=== PATIENT | male | born 1955 | race Caucasian/White ===

== ENCOUNTER 2022-10-05 11:52 | Emergency (ER) | payer OTHER ==
[2022-10-05] MEDS ORDERED: KETOROLAC 15 MG/ML 1 ML VIAL IM STA (13:06)
--- NOTE | 2022-10-05 13:07 | ED ---
General Adult HPI - General Chief complaint: Fall Stated complaint: [facility] - Fall, Hip Injury Time Seen by Provider: 10/05/22 12:51 Source: patient, RN notes reviewed Mode of arrival: ambulatory Limitations: no limitations - History of Present Illness Initial comments: Patient is a pleasant 66-year-old male presenting to the emergency department with concerns with right hip pain. Patient was at work pulling on an object when he slipped and fell. Patient landed on his right hip. Patient has discomfort right hip region since that time. Discomfort is greatly increased with movement and walking. Patient is only able to take a couple of steps. No history of similar problems or trauma to this area previously. - Related Data Previous Rx's Medication Instructions Recorded Cyclobenzaprine [Flexeril] 10 mg PO TID PRN #12 tablet 10/05/22 Ibuprofen [Motrin] 600 mg PO Q6HR PRN #20 tab 10/05/22 Allergies Allergy/AdvReac Type Severity Reaction Status Date / Time No Known Allergies Allergy Verified 10/05/22 12:20 Review of Systems ROS Statement: Those systems with pertinent positive or pertinent negative responses have been documented in the HPI. ROS Other: All systems not noted in ROS Statement are negative. Constitutional: Denies: fever Eyes: Denies: eye pain ENT: Denies: ear pain Respiratory: Denies: cough Cardiovascular: Denies: chest pain Endocrine: Denies: fatigue Gastrointestinal: Denies: abdominal pain Genitourinary: Denies: dysuria Musculoskeletal: Reports: as per HPI Skin: Denies: rash Neurological: Denies: weakness Past Medical History Past Medical History: Hypertension Past Surgical History: No Surgical Hx Reported Past Psychological History: No Psychological Hx Reported Smoking Status: Never smoker Past Alcohol Use History: None Reported Past Drug Use History: None Reported General Exam Limitations: no limitations General appearance: alert, in no apparent distress Head exam: Present: atraumatic Eye exam: Present: normal appearance Neck exam: Present: normal inspection. Absent: tenderness Respiratory exam: Present: normal lung sounds bilaterally Cardiovascular Exam: Present: regular rate, normal rhythm GI/Abdominal exam: Present: soft. Absent: tenderness Extremities exam: Present: tenderness (Right lateral and posterior hip region. Distally the extremity is neurovascular intact.) Back exam: Present: normal inspection. Absent: tenderness, vertebral tenderness Neurological exam: Present: alert. Absent: motor sensory deficit Psychiatric exam: Present: normal affect, normal mood Skin exam: Present: normal color Course Vital Signs 10/05/22 12:20 Temperature 98 F Pulse Rate 71 Respiratory 16 Rate Blood Pressure 138/74 O2 Sat by Pulse 95 Oximetry Medical Decision Making - Medical Decision Making Was pt. sent in by a medical professional or institution ([facility], [facility], urgent care, hospital, or long-term...) When possible be specific @ -Patient was sent from work Did you speak to anyone other than the patient for history (EMS, parent, family, police, friend...)? What history was obtained from this source @ -No Did you review nursing and triage notes (agree or disagree)? Why? @ -I reviewed and agree with nursing and triage notes Were old charts reviewed (outside hosp., previous admission, EMS record, old EKG, old radiological studies, urgent care reports/EKG's, long-term records)? Report findings @ -No old charts were reviewed Differential Diagnosis (chest pain, altered mental status, abdominal pain women, abdominal pain men, vaginal bleeding, weakness, fever, dyspnea, syncope, headache, dizziness, GI bleed, back pain, seizure, CVA, palpatations, mental health)? @ -Differential diagnosis includes but not limited to fracture, contusion, sp rain, head or back injury, other, this is not conclusive list. EKG interpreted by me (3pts min.). @ -None X-rays interpreted by me (1pt min.). @ -X-ray right hip and pelvis does not reveal any fracture, interpreted by myself CT interpreted by me (1pt min.). @ -None done U/S interpreted by me (1pt. min.). @ -None done What testing was considered but not performed or refused? (CT, X-rays, U/S, labs)? Why? @ -None What meds were considered but not given or refused? Why? @ -Considered narcotic medication however patient was driving Did you discuss the management of the patient with other professionals (professionals i.e. [facility], [facility], lab, RT, psych nurse, social human services assistants, immigration lawyer, teacher, aviation safety officer, pillowcase maker)? Give summary @ -No Was smoking cessation discussed for >3mins.? @ -No Was critical care preformed (if so, how long)? @ -No Were there social determinants of health that impacted care today? How? (Homelessness, low income, unemployed, alcoholism, drug addiction, transportation, low edu. Level, literacy, decrease access to med. care, assisted, rehab)? @ -No Was there de-escalation of care discussed even if they declined (Discuss DNR or withdrawal of care, Hospice)? DNR status @ -No What co-morbidities impacted this encounter? (DM, HTN, Smoking, COPD, CAD, Cancer, CVA, ARF, Chemo, Hep., AIDS, mental health diagnosis, sleep apnea, morbid obesity)? @ -None Was patient admitted / discharged? Hospital course, mention meds given and route, prescriptions, significant lab abnormalities, going to OR and other pertinent info. @ -Discharge. Patient originally needed to be seen in the waiting room secondary to no beds. Patient will be given Toradol and follow-up with [facility]. Patient reevaluated and updated on x-ray results Undiagnosed new problem with uncertain prognosis? @ -No Drug Therapy requiring intensive monitoring for toxicity (Heparin, Nitro, Insulin, Cardizem)? @ -No Were any procedures done? @ -No Diagnosis/symptom? @ -Hip contusion Acute, or Chronic, or Acute on Chronic? @ -Acute Uncomplicated (without systemic symptoms) or Complicated (systemic symptoms)? @ -Uncomplicated Side effects of treatment? @ -No Exacerbation, Progression, or Severe Exacerbation? @ -No Poses a threat to life or bodily function? How? (Chest pain, [place], CA, pneumonia, PE, COPD, DKA, ARF, appy, cholecystitis, CVA, Diverticulitis, Homicidal, Suic idal, threat to staff... and all critical care pts) @ -No Disposition Clinical Impression: Fall, Contusion, hip Disposition: HOME SELF-CARE Condition: Stable Instructions (If sedation given, give patient instructions): Hip Contusion (ED) Additional Instructions: Please do follow-up with [facility] in the next day or 2 for recheck. Return for unable to walk, weakness, worsening or changing symptoms or any other concerns. Prescriptions have been sent to pharmacy. Prescriptions: Cyclobenzaprine [Flexeril] 10 mg PO TID PRN #12 tablet PRN Reason: Pain Ibuprofen [Motrin] 600 mg PO Q6HR PRN #20 tab PRN Reason: Pain Is patient prescribed a controlled substance at d/c from ED?: No Referrals: Nonstaff,Physician [Primary Care Provider] - 1-2 days Time of Disposition: 14:10
--- NOTE | 2022-10-05 13:33 | XR ---
EXAMINATION TYPE: XR Hip RT and AP Pelvis DATE OF EXAM: 10/05/2022 COMPARISON: NONE HISTORY: Fall injury with pain TECHNIQUE: A single AP view of the pelvis is obtained. Two views of the right hip are obtained. FINDINGS: There is no acute fracture/dislocation evident in the pelvis. The hip and sacroiliac join ts appear symmetric and unremarkable. Pubic symphysis is intact. The overlying soft tissue appears u nremarkable. Two views of right hip show no acute fracture or dislocation. No focal lytic or sclerotic lesion see n in the proximal right femur. The overlying soft tissue is unremarkable. IMPRESSION: There is no acute fracture or dislocation in the pelvis or right hip.
[2022-10-05] MEDS ORDERED: ACET/COD 300 MG/30 MG STARTER PACK 6 TAB BTL PO STA (14:11)
[2022-10-05] MEDS ORDERED: HYDROmorphone 1 MG/ML 1 ML SYRINGE IM STA (15:31)
--- NOTE | 2022-10-05 16:36 | CT ---
EXAMINATION TYPE: CT hip RT wo con DATE OF EXAM: 10/05/2022 COMPARISON: None HISTORY: Fall on right hip today, severe pain. CT DLP: 1111.8 mGycm Automated exposure control for dose reduction was used. Images obtained from the iliac crest to the subtrochanteric femur with no contrast. The acetabulum is intact. Right hemipelvis is intact. Sacroiliac joint appears normal. The proximal r ight femur is intact. No evidence of hip fracture. No pathologic fluid collection. There is minimal s ubcutaneous increased density lateral to the greater trochanter. The atrium is intact. IMPRESSION: No fracture seen. Minimal subcutaneous bruising over the lateral aspect of the greater trochanter of the right femur.
[2022-10-05 17:07] VITALS: BP 130/86; PULSE 78; RESP 18; TEMP 98
== END 2022-10-05 16:50 | disposition home or self-care (01) ==
LOC: EC 11:52
DX: S70.01XA Contusion of right hip, initial encounter (principal); I10 Essential (primary) hypertension; W01.0XXA Fall on same level from slipping, tripping and stumbling without subsequent striking against object, initial encounter; Y93.9 Activity, unspecified
CPT/HCPCS: 73502; 73700; 99284; 96372 ×2; J1170; J1885

== ENCOUNTER → 2022-10-24 | Outpatient (CLI) | payer OTHER ==
--- NOTE | 2022-10-24 10:22 | XR ---
EXAMINATION TYPE: XR Hip Complete RT DATE OF EXAM: 10/24/2022 Comparison: 10/05/2022 Clinical History: 66-year-old male [id number] Contusion rt hip Findings: Mild marginal spurring superolateral acetabular rim. Joint spaces relatively maintained. No acute fra cture, subluxation, dislocation. Impression: No acute osseous abnormality seen.
== END | disposition home or self-care (01) ==
LOC: RADXRMAIN 09:55
PROVIDERS: ATTEND Emergency Medicine
DX: S70.01XD Contusion of right hip, subsequent encounter (principal); X58.XXXA Exposure to other specified factors, initial encounter
CPT/HCPCS: 73502